=== PATIENT | male | born 1945 | race Caucasian/White ===

== ENCOUNTER 2019-09-02 06:19 | Inpatient (IN) | payer MEDICARE, OTHER ==
[~2019-09-02] VITALS: Ht 167.6 cm; Wt 94.6 kg
[2019-09-02] MEDS ORDERED: ALBUTEROL/IPRATROPIUM 2.5MG/0.5MG, 3 ML NPPB ONE (06:30)
[2019-09-02] MEDS ORDERED: MORPHINE SULFATE 4 MG/ML, 1ML ONE (06:30)
[2019-09-02] MEDS ORDERED: SODIUM CHLORIDE FLUSH 10ML SYR IVF ONE (06:30)
[2019-09-02] MEDS ORDERED: ONDANSETRON 2MG/ML, 2ML ONE (06:30)
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
--- NOTE | 2019-09-02 06:57 | NUR ---
REPORT TO DAVON TAM
[2019-09-02 07:10] LABS: BASOPHILS # (AUTO) 0.05 x10^3/uL (0-0.1); BASOPHILS % (AUTO) 1 % (0-1); EOSINOPHILS # (AUTO) 0.31 x10^3/uL (0-0.4); EOSINOPHILS % (AUTO) 3 % (1-7); LYMPHOCYTES # (AUTO) 4.26 x10^3/uL (1-3.4); LYMPHOCYTES % (AUTO) 38 % (22-44); MD NO; MEAN CORPUSCULAR HEMOGLOBIN 30.8 pg (27.5-34.5); MEAN CORPUSCULAR HGB CONC 33.1 g/dL (33.2-36.2); MEAN PLATELET VOLUME 10.8 fL (7.4-10.4); MONOCYTES # (AUTO) 0.96 x10^3/uL (0.2-0.8); MONOCYTES % (AUTO) 9 % (2-9); NEUTROPHILS # (AUTO) 5.67 x10^3/uL (1.8-6.8); NEUTROPHILS % (AUTO) 50 % (42-75); PLATELET COUNT 195 x10^3/uL (130-400); RED BLOOD COUNT 5.34 x10^6/uL (4.38-5.82); RED CELL DISTRIBUTION WIDTH 12.6 % (9.4-14.8)
[2019-09-02 07:14] LABS: ALBUMIN 3.7 g/dL (3.4-5.0); ANION GAP 8 mmol/L (5-15); CALCIUM 9.3 mg/dL (8.5-10.1); CHLORIDE 106 mmol/L (98-107); CREATININE 2.19 mg/dL (0.7-1.3)
--- NOTE | 2019-09-02 07:14 | NUR ---
REPORT FROM YONATAN TORREZ. PT SITTING UP IN BED ON SIMPLE MASK. "IT'S HARD TO BREATHE" PT SPEAKING IN FULL SENTENCES TO FAMILY. SATURATING WELL ON SIMPLE MASK. LAB AT BEDSIDE.
--- NOTE | 2019-09-02 08:10 | NUR ---
PT SITTING UP IN BED, TALKING WITH FAMILY. ATTEMPT TO SIT UP TO EDGE OF BED AND USE URINAL. NAD NOTED AT THIS TIME. AWAITING ADMIT ORDER.
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
[2019-09-02] MEDS ORDERED: SODIUM CHLORIDE FLUSH 10ML SYR IVF PRN (10:00)
[2019-09-02 10:46] VITALS: BP 113/67
[2019-09-02 10:55] VITALS: BP 117/73
[2019-09-02] MEDS ORDERED: DOCUSATE 100 MG CAPSULE PO PRN (12:00)
[2019-09-02] MEDS ORDERED: ONDANSETRON 2MG/ML, 2ML IVPush PRN (12:00)
[2019-09-02] MEDS ORDERED: ALBUTEROL HFA 90 MCG/SPRAY INH PRN (12:00)
[2019-09-02] MEDS ORDERED: ACETAMINOPHEN 500 MG TABLET PO PRN (12:00)
[2019-09-02] MEDS ORDERED: ACET325T14 PO (12:25)
[2019-09-02] MEDS ORDERED: CHOL10003 PO (12:25)
[2019-09-02] MEDS ORDERED: GABA-827 PO (12:25)
[2019-09-02] MEDS ORDERED: METO-99 PO (12:25)
[2019-09-02] MEDS ORDERED: METF500T17 PO (12:25)
[2019-09-02] MEDS ORDERED: INSU100V12 SC ×2 (12:25)
[2019-09-02] MEDS ORDERED: ROSU40TA PO (12:25)
[2019-09-02] MEDS ORDERED: APIX2.5T PO (12:25)
[2019-09-02] MEDS ORDERED: CLOP75TA52 PO (12:25)
[2019-09-02] MEDS ORDERED: ISOS20TA3 PO (12:25)
[2019-09-02] MEDS ORDERED: LORA10TA62 PO (12:25)
[2019-09-02] MEDS ORDERED: LOSA50TA14 PO (12:25)
[2019-09-02] MEDS ORDERED: SPIR25TA5 PO (12:25)
[2019-09-02] MEDS ORDERED: FENO54TA17 PO (12:25)
[2019-09-02 15:05] VITALS: BP 150/76
[2019-09-02] MEDS ORDERED: INSULIN ASPART SC SCH (16:30)
[2019-09-02] MEDS ORDERED: INSULN ASP PRT SC SCH (16:30)
[2019-09-02] MEDS: INSULIN LISPRO 100 UNITS/ML, PEN SQ-INSULIN SCH ×2 (16:35→21:18)
[2019-09-02 18:57] VITALS: BP 113/64
[2019-09-02] MEDS ORDERED: INSULIN GLARGINE 100 UNITS/ML, PEN SQ-INSULIN SCH (21:00)
[2019-09-02] MEDS: APIXABAN 5 MG TABLET PO SCH (21:16)
[2019-09-02] MEDS: ATORVASTATIN 80 MG TABLET PO SCH (21:16)
[2019-09-02] MEDS: ACETAMINOPHEN 325 MG TABLET PO PRN (21:16)
[2019-09-02] MEDS: GABAPENTIN 300 MG CAPSULE PO SCH (21:16)
[2019-09-02] MEDS: FENOFIBRATE 145 MG TABLET PO SCH (21:16)
[2019-09-02 23:27] VITALS: BP 137/95
[2019-09-02 23:47] VITALS: BP 135/86
[2019-09-02] MEDS ORDERED: DILTIAZEM 5 MG/ML, 5ML IVPush STA (23:54)
[2019-09-03] VITALS (10 sets, daily range): BP systolic 104–143; BP diastolic 58–85
[2019-09-03] MEDS ORDERED: DILTIAZEM 5 MG/ML, 5ML IVPush STA ×2 (00:38→01:30)
[2019-09-03] MEDS: METOPROLOL SUCCINATE 100 MG TAB.ER.24H PO SCH (01:49)
[2019-09-03 02:23] LABS: MEAN CORPUSCULAR HEMOGLOBIN 30.9 pg (27.5-34.5); MEAN CORPUSCULAR HGB CONC 33.4 g/dL (33.2-36.2); MEAN PLATELET VOLUME 10.8 fL (7.4-10.4); PLATELET COUNT 185 x10^3/uL (130-400); RED BLOOD COUNT 5.26 x10^6/uL (4.38-5.82); RED CELL DISTRIBUTION WIDTH 13.1 % (9.4-14.8)
[2019-09-03 02:30] LABS: ALBUMIN 3.4 g/dL (3.4-5.0); ANION GAP 10 mmol/L (5-15); CHLORIDE 106 mmol/L (98-107)
[2019-09-03 02:33] LABS: ALANINE AMINOTRANSFERASE 28 U/L (12-78); ALKALINE PHOSPHATASE 57 U/L (45-117); BILIRUBIN,TOTAL 0.9 mg/dL (0.2-1.0); CREATININE 2.05 mg/dL (0.7-1.3); TOTAL PROTEIN 7.8 g/dL (6.4-8.2)
[2019-09-03 02:45] LABS: BASOPHILS # (AUTO) 0.03 x10^3/uL (0-0.1); BASOPHILS % (AUTO) 0 % (0-1); EOSINOPHILS # (AUTO) 0.05 x10^3/uL (0-0.4); EOSINOPHILS % (AUTO) 0 % (1-7); LYMPHOCYTES # (AUTO) 2.59 x10^3/uL (1-3.4); LYMPHOCYTES % (AUTO) 12 % (22-44); MD SCAN; MONOCYTES # (AUTO) 2.06 x10^3/uL (0.2-0.8); MONOCYTES % (AUTO) 10 % (2-9); NEUTROPHILS # (AUTO) 16.63 x10^3/uL (1.8-6.8); NEUTROPHILS % (AUTO) 78 % (42-75)
[2019-09-03] MEDS ORDERED: METOPROLOL 1 MG/ML, 5ML IVPush STA (04:00)
[2019-09-03] MEDS: DILTIAZEM 125 MG in SODIUM CHLORIDE 0.9% 100 ML IV SCH ×2 (05:43→17:15)
[2019-09-03] MEDS ORDERED: INSULIN ASPART SC SCH (07:30)
[2019-09-03] MEDS ORDERED: INSULN ASP PRT SC SCH (07:30)
[2019-09-03] MEDS: CLOPIDOGREL 75 MG TABLET PO SCH (08:20)
[2019-09-03] MEDS: APIXABAN 5 MG TABLET PO SCH ×2 (08:20→20:58)
[2019-09-03] MEDS: LOSARTAN 50MG TABLET PO SCH (08:20)
[2019-09-03] MEDS: ISOSORBIDE MONONITRATE ER 60 MG TABLET PO SCH (08:20)
[2019-09-03] MEDS: SPIRONOLACTONE 25 MG TABLET PO SCH (08:20)
[2019-09-03] MEDS: INSULIN LISPRO 100 UNITS/ML, PEN SQ-INSULIN SCH ×4 (08:21→20:59)
[2019-09-03] MEDS ORDERED: FUROSEMIDE 20 MG/2 ML IV ONE ×2 (09:30)
[2019-09-03] MEDS: INSULIN GLARGINE 100 UNITS/ML, PEN SQ-INSULIN SCH ×2 (17:14→20:58)
[2019-09-03] MEDS: ATORVASTATIN 80 MG TABLET PO SCH (20:57)
[2019-09-03] MEDS: FENOFIBRATE 145 MG TABLET PO SCH (20:57)
[2019-09-03] MEDS: ACETAMINOPHEN 325 MG TABLET PO PRN (20:58)
[2019-09-03] MEDS: GABAPENTIN 300 MG CAPSULE PO SCH (20:58)
[2019-09-04] VITALS (8 sets, daily range): BP systolic 95–138; BP diastolic 60–76
[2019-09-04] MEDS: METOPROLOL SUCCINATE 100 MG TAB.ER.24H PO SCH (05:17)
[2019-09-04] MEDS: DILTIAZEM 125 MG in SODIUM CHLORIDE 0.9% 100 ML IV SCH (05:17)
[2019-09-04 05:40] LABS: MEAN CORPUSCULAR HEMOGLOBIN 30.9 pg (27.5-34.5); MEAN CORPUSCULAR HGB CONC 33.1 g/dL (33.2-36.2); MEAN PLATELET VOLUME 10.6 fL (7.4-10.4); PLATELET COUNT 160 x10^3/uL (130-400); RED BLOOD COUNT 4.81 x10^6/uL (4.38-5.82); RED CELL DISTRIBUTION WIDTH 13.5 % (9.4-14.8)
[2019-09-04 06:01] LABS: ANION GAP 12 mmol/L (5-15); CALCIUM 9.3 mg/dL (8.5-10.1); CHLORIDE 107 mmol/L (98-107)
[2019-09-04 06:04] LABS: ALANINE AMINOTRANSFERASE 25 U/L (12-78); ALKALINE PHOSPHATASE 50 U/L (45-117); CREATININE 2.82 mg/dL (0.7-1.3); TOTAL PROTEIN 7.8 g/dL (6.4-8.2)
[2019-09-04 06:08] LABS: BASOPHILS # (AUTO) 0.02 x10^3/uL (0-0.1); BASOPHILS % (AUTO) 0 % (0-1); EOSINOPHILS # (AUTO) 0.04 x10^3/uL (0-0.4); EOSINOPHILS % (AUTO) 0 % (1-7); LYMPHOCYTES # (AUTO) 1.92 x10^3/uL (1-3.4); LYMPHOCYTES % (AUTO) 17 % (22-44); MD SCAN; MONOCYTES # (AUTO) 1.75 x10^3/uL (0.2-0.8); MONOCYTES % (AUTO) 15 % (2-9); NEUTROPHILS # (AUTO) 7.86 x10^3/uL (1.8-6.8); NEUTROPHILS % (AUTO) 68 % (42-75)
[2019-09-04] MEDS: CLOPIDOGREL 75 MG TABLET PO SCH (08:47)
[2019-09-04] MEDS: INSULIN LISPRO 100 UNITS/ML, PEN SQ-INSULIN SCH ×5 (08:47→20:16)
[2019-09-04] MEDS: INSULIN GLARGINE 100 UNITS/ML, PEN SQ-INSULIN SCH ×2 (08:47→20:15)
[2019-09-04] MEDS: SPIRONOLACTONE 25 MG TABLET PO SCH (08:47)
[2019-09-04] MEDS: APIXABAN 5 MG TABLET PO SCH ×2 (08:48→20:15)
[2019-09-04] MEDS: LOSARTAN 50MG TABLET PO SCH (08:48)
[2019-09-04] MEDS: ISOSORBIDE MONONITRATE ER 60 MG TABLET PO SCH (08:48)
[2019-09-04] MEDS ORDERED: PHARMACY MAY ADJ FOR RENAL FX MC PRN (09:30)
[2019-09-04] MEDS ORDERED: LACTATED RINGERS 1,000 ML IV SCH (13:00)
[2019-09-04] MEDS: GUAIFENESIN 200 MG TABLET PO SCH ×3 (13:22→20:14)
[2019-09-04 14:31] LABS: ACETONE, SERUM Trace (Negative)
[2019-09-04] MEDS: DILTIAZEM 30 MG TABLET PO SCH ×2 (16:43→20:15)
[2019-09-04 20:12] LABS: CLOSTRIDIUM DIFFICILE ANTIGEN NEGATIVE; CLOSTRIDIUM DIFFICILE TOXIN NEGATIVE (Negative)
[2019-09-04] MEDS: GABAPENTIN 300 MG CAPSULE PO SCH (20:14)
[2019-09-04] MEDS: FENOFIBRATE 145 MG TABLET PO SCH (20:14)
[2019-09-04] MEDS: ATORVASTATIN 80 MG TABLET PO SCH (20:15)
[2019-09-05 00:18] VITALS: BP 107/59
[2019-09-05 05:33] VITALS: BP 116/72
[2019-09-05] MEDS: GUAIFENESIN 200 MG TABLET PO SCH ×4 (05:34→20:51)
[2019-09-05] MEDS: METOPROLOL SUCCINATE 100 MG TAB.ER.24H PO SCH (05:34)
[2019-09-05 05:53] LABS: BASOPHILS # (AUTO) 0.03 x10^3/uL (0-0.1); BASOPHILS % (AUTO) 0 % (0-1); EOSINOPHILS # (AUTO) 0.18 x10^3/uL (0-0.4); EOSINOPHILS % (AUTO) 2 % (1-7); LYMPHOCYTES # (AUTO) 2.12 x10^3/uL (1-3.4); LYMPHOCYTES % (AUTO) 25 % (22-44); MD NO; MEAN CORPUSCULAR HGB CONC 33.3 g/dL (33.2-36.2); MEAN PLATELET VOLUME 10.6 fL (7.4-10.4); MONOCYTES # (AUTO) 1.13 x10^3/uL (0.2-0.8); MONOCYTES % (AUTO) 13 % (2-9); NEUTROPHILS # (AUTO) 5.12 x10^3/uL (1.8-6.8); NEUTROPHILS % (AUTO) 60 % (42-75); PLATELET COUNT 180 x10^3/uL (130-400); RED BLOOD COUNT 4.52 x10^6/uL (4.38-5.82); RED CELL DISTRIBUTION WIDTH 13.2 % (9.4-14.8)
[2019-09-05 06:04] LABS: CALCIUM 8.2 mg/dL (8.5-10.1); CREATININE 2.36 mg/dL (0.7-1.3)
[2019-09-05 06:57] VITALS: BP 135/81
[2019-09-05] MEDS: INSULIN GLARGINE 100 UNITS/ML, PEN SQ-INSULIN SCH ×2 (07:55→20:53)
[2019-09-05] MEDS: INSULIN LISPRO 100 UNITS/ML, PEN SQ-INSULIN SCH ×4 (07:55→20:52)
[2019-09-05] MEDS: APIXABAN 5 MG TABLET PO SCH ×2 (07:56→20:51)
[2019-09-05] MEDS: DILTIAZEM 30 MG TABLET PO SCH ×3 (07:56→20:52)
[2019-09-05] MEDS: CLOPIDOGREL 75 MG TABLET PO SCH (07:56)
[2019-09-05] MEDS: ISOSORBIDE MONONITRATE ER 60 MG TABLET PO SCH (07:56)
[2019-09-05] MEDS ORDERED: LOPERAMIDE 2 MG CAPSULE PO PRN (09:00)
[2019-09-05 09:10] LABS: ANION GAP 11 mmol/L (5-15); CHLORIDE 108 mmol/L (98-107)
[2019-09-05] MEDS: ACETAMINOPHEN 325 MG TABLET PO PRN (09:26)
[2019-09-05] MEDS: LACTOBACILLUS CHEW TABLET PO SCH ×3 (11:08→20:51)
[2019-09-05 12:27] VITALS: BP 135/76
[2019-09-05] MEDS ORDERED: LACTATED RINGERS 1,000 ML IV SCH (14:00)
[2019-09-05 16:21] VITALS: BP 123/68
[2019-09-05 18:58] VITALS: BP 119/70
[2019-09-05] MEDS: GABAPENTIN 300 MG CAPSULE PO SCH (20:51)
[2019-09-05] MEDS: FENOFIBRATE 145 MG TABLET PO SCH (20:51)
[2019-09-05] MEDS: ATORVASTATIN 80 MG TABLET PO SCH (20:51)
[2019-09-06 00:42] VITALS: BP 117/73
[2019-09-06 05:51] VITALS: BP 125/59
[2019-09-06] MEDS: GUAIFENESIN 200 MG TABLET PO SCH ×2 (05:53→11:12)
[2019-09-06] MEDS: LACTOBACILLUS CHEW TABLET PO SCH ×4 (05:53→20:17)
[2019-09-06] MEDS: METOPROLOL SUCCINATE 100 MG TAB.ER.24H PO SCH (05:53)
[2019-09-06] MEDS: CLOPIDOGREL 75 MG TABLET PO SCH (08:23)
[2019-09-06] MEDS: ISOSORBIDE MONONITRATE ER 60 MG TABLET PO SCH (08:23)
[2019-09-06] MEDS: DILTIAZEM 30 MG TABLET PO SCH ×3 (08:23→20:17)
[2019-09-06] MEDS: APIXABAN 5 MG TABLET PO SCH ×2 (08:23→20:17)
[2019-09-06] MEDS: INSULIN LISPRO 100 UNITS/ML, PEN SQ-INSULIN SCH ×4 (08:24→20:18)
[2019-09-06] MEDS: INSULIN GLARGINE 100 UNITS/ML, PEN SQ-INSULIN SCH ×2 (08:25→20:18)
[2019-09-06 08:35] VITALS: BP 126/84
[2019-09-06 11:24] LABS: CHLORIDE 108 mmol/L (98-107)
[2019-09-06 11:35] LABS: ANION GAP 13 mmol/L (5-15); CALCIUM 8.6 mg/dL (8.5-10.1); CREATININE 1.77 mg/dL (0.7-1.3)
[2019-09-06 13:50] VITALS: BP 119/71
[2019-09-06 18:35] VITALS: BP 134/66
[2019-09-06] MEDS: GABAPENTIN 300 MG CAPSULE PO SCH (20:17)
[2019-09-06] MEDS: ATORVASTATIN 80 MG TABLET PO SCH (20:17)
[2019-09-06] MEDS: FENOFIBRATE 145 MG TABLET PO SCH (20:17)
[2019-09-06] MEDS: GUAIFENESIN 200 MG TABLET PO PRN (20:20)
[2019-09-07 00:41] VITALS: BP 144/83
[2019-09-07] MEDS ORDERED: PROMETHAZINE 25 MG/ML, 1ML IV ONE ×2 (05:00→05:30)
[2019-09-07 05:19] VITALS: BP 133/74
[2019-09-07] MEDS: LACTOBACILLUS CHEW TABLET PO SCH ×4 (05:20→20:43)
[2019-09-07] MEDS: METOPROLOL SUCCINATE 100 MG TAB.ER.24H PO SCH (05:20)
[2019-09-07 06:11] VITALS: BP 122/76
[2019-09-07 06:25] LABS: ANION GAP 8 mmol/L (5-15); CHLORIDE 107 mmol/L (98-107); CREATININE 1.63 mg/dL (0.7-1.3)
[2019-09-07] MEDS: CLOPIDOGREL 75 MG TABLET PO SCH (07:53)
[2019-09-07] MEDS: DILTIAZEM 30 MG TABLET PO SCH ×3 (07:53→20:44)
[2019-09-07] MEDS: ISOSORBIDE MONONITRATE ER 60 MG TABLET PO SCH (07:53)
[2019-09-07] MEDS: APIXABAN 5 MG TABLET PO SCH ×2 (07:53→20:44)
[2019-09-07] MEDS: INSULIN GLARGINE 100 UNITS/ML, PEN SQ-INSULIN SCH ×2 (07:54→20:43)
[2019-09-07] MEDS: INSULIN LISPRO 100 UNITS/ML, PEN SQ-INSULIN SCH ×5 (07:54→20:42)
[2019-09-07 13:05] VITALS: BP 138/78
[2019-09-07 19:04] VITALS: BP 101/45
[2019-09-07] MEDS: FENOFIBRATE 145 MG TABLET PO SCH (20:43)
[2019-09-07] MEDS: GABAPENTIN 300 MG CAPSULE PO SCH (20:43)
[2019-09-07] MEDS: ATORVASTATIN 80 MG TABLET PO SCH (20:44)
[2019-09-08 00:21] VITALS: BP 135/83
[2019-09-08 04:02] LABS: MEAN CORPUSCULAR HEMOGLOBIN 30.9 pg (27.5-34.5); MEAN CORPUSCULAR HGB CONC 33.1 g/dL (33.2-36.2); MEAN PLATELET VOLUME 9.6 fL (7.4-10.4); PLATELET COUNT 217 x10^3/uL (130-400); RED BLOOD COUNT 4.77 x10^6/uL (4.38-5.82); RED CELL DISTRIBUTION WIDTH 13.1 % (9.4-14.8)
[2019-09-08 04:10] LABS: ANION GAP 8 mmol/L (5-15); CALCIUM 8.8 mg/dL (8.5-10.1); CHLORIDE 110 mmol/L (98-107); CREATININE 1.46 mg/dL (0.7-1.3)
[2019-09-08 04:53] LABS: MD YES
[2019-09-08 05:01] LABS: BAND#(MANUAL) 0.15 x10^3/uL; BANDS%(MANUAL) 1 % (0-7); EOS#(MANUAL) 0.31 x10^3/uL (0.0-0.4); EOS% (MANUAL) 2 % (1-7); LYMPH#(MANUAL) 3.21 x10^3/uL (1-3.4); LYMPHS% (MANUAL) 21 % (22-44); MONOS#(MANUAL) 1.22 x10^3/uL (0.3-2.7); MONOS% (MANUAL) 8 % (2-9); POLYCHROMASIA 1+; REACTIVE LYMPHS # (MANUAL) 0.31 x10^3/uL (0-0); REACTIVE LYMPHS % (MANUAL) 2 % (0-0); SEGS% (MANUAL) 66 % (42-75)
[2019-09-08 05:02] LABS: <PLATELET ESTIMATE> ADEQUATE; <PLT MORPHOLOGY> NORMAL PLT MORPH
[2019-09-08 05:09] VITALS: BP 137/99
[2019-09-08] MEDS: GUAIFENESIN 200 MG TABLET PO PRN (05:11)
[2019-09-08] MEDS: METOPROLOL SUCCINATE 100 MG TAB.ER.24H PO SCH (05:11)
[2019-09-08] MEDS: LACTOBACILLUS CHEW TABLET PO SCH ×4 (05:12→21:02)
[2019-09-08] MEDS: INSULIN LISPRO 100 UNITS/ML, PEN SQ-INSULIN SCH ×4 (08:20→21:04)
[2019-09-08] MEDS: APIXABAN 5 MG TABLET PO SCH ×2 (08:21→21:02)
[2019-09-08] MEDS: ISOSORBIDE MONONITRATE ER 60 MG TABLET PO SCH (08:21)
[2019-09-08] MEDS: DILTIAZEM 30 MG TABLET PO SCH ×3 (08:21→21:02)
[2019-09-08] MEDS: CLOPIDOGREL 75 MG TABLET PO SCH (08:21)
[2019-09-08] MEDS: INSULIN GLARGINE 100 UNITS/ML, PEN SQ-INSULIN SCH ×2 (08:21→21:03)
[2019-09-08 08:24] VITALS: BP 130/79
[2019-09-08 14:36] VITALS: BP 117/60
[2019-09-08 18:39] VITALS: BP 135/69
[2019-09-08] MEDS: ATORVASTATIN 80 MG TABLET PO SCH (21:02)
[2019-09-08] MEDS: FENOFIBRATE 145 MG TABLET PO SCH (21:02)
[2019-09-08] MEDS: GABAPENTIN 300 MG CAPSULE PO SCH (21:02)
[2019-09-08] MEDS: ACETAMINOPHEN 325 MG TABLET PO PRN (21:27)
[2019-09-09 01:53] VITALS: BP 129/64
[2019-09-09 04:24] LABS: BASOPHILS # (AUTO) 0.04 x10^3/uL (0-0.1); BASOPHILS % (AUTO) 0 % (0-1); EOSINOPHILS # (AUTO) 0.22 x10^3/uL (0-0.4); EOSINOPHILS % (AUTO) 2 % (1-7); LYMPHOCYTES # (AUTO) 3.11 x10^3/uL (1-3.4); LYMPHOCYTES % (AUTO) 22 % (22-44); MD NO; MEAN CORPUSCULAR HEMOGLOBIN 30.6 pg (27.5-34.5); MEAN CORPUSCULAR HGB CONC 33.2 g/dL (33.2-36.2); MEAN PLATELET VOLUME 10.1 fL (7.4-10.4); MONOCYTES # (AUTO) 1.29 x10^3/uL (0.2-0.8); MONOCYTES % (AUTO) 9 % (2-9); NEUTROPHILS % (AUTO) 67 % (42-75); PLATELET COUNT 201 x10^3/uL (130-400); RED BLOOD COUNT 4.66 x10^6/uL (4.38-5.82); RED CELL DISTRIBUTION WIDTH 13.1 % (9.4-14.8)
[2019-09-09 04:31] LABS: CHLORIDE 107 mmol/L (98-107)
[2019-09-09 04:35] LABS: ANION GAP 9 mmol/L (5-15); CALCIUM 7.8 mg/dL (8.5-10.1); CREATININE 1.62 mg/dL (0.7-1.3)
[2019-09-09 05:58] VITALS: BP 141/84
[2019-09-09] MEDS: LACTOBACILLUS CHEW TABLET PO SCH ×2 (05:59→10:54)
[2019-09-09] MEDS: METOPROLOL SUCCINATE 100 MG TAB.ER.24H PO SCH (05:59)
[2019-09-09 08:17] VITALS: BP 129/73
[2019-09-09] MEDS: APIXABAN 5 MG TABLET PO SCH (08:25)
[2019-09-09] MEDS: DILTIAZEM 30 MG TABLET PO SCH (08:26)
[2019-09-09] MEDS: ISOSORBIDE MONONITRATE ER 60 MG TABLET PO SCH (08:26)
[2019-09-09] MEDS: CLOPIDOGREL 75 MG TABLET PO SCH (08:26)
[2019-09-09] MEDS: INSULIN LISPRO 100 UNITS/ML, PEN SQ-INSULIN SCH ×2 (08:33→10:54)
[2019-09-09] MEDS: INSULIN GLARGINE 100 UNITS/ML, PEN SQ-INSULIN SCH (08:33)
[2019-09-09] MEDS ORDERED: METO-95 PO (11:17)
[2019-09-09] MEDS ORDERED: DILT30TA27 PO (11:17)
[2019-09-09 13:02] VITALS: BP 158/90
== END 2019-09-09 15:53 | DRG 917 ==
LOC: ED 07:30 → EDIP 08:48 → 4WST 10:17
PROVIDERS: ADMIT Internal Medicine; ATTEND Family Medicine
DX: T58.91XA Toxic effect of carbon monoxide from unspecified source, accidental (unintentional), initial encounter (principal); J96.01 Acute respiratory failure with hypoxia; I50.43 Acute on chronic combined systolic (congestive) and diastolic (congestive) heart failure; N17.0 Acute kidney failure with tubular necrosis; I47.2 Ventricular tachycardia; E87.2 Acidosis; I13.0 Hypertensive heart and chronic kidney disease with heart failure and stage 1 through stage 4 chronic kidney disease, or unspecified chronic kidney disease; D68.69 Other thrombophilia; I48.20 Chronic atrial fibrillation, unspecified; E11.65 Type 2 diabetes mellitus with hyperglycemia; E11.21 Type 2 diabetes mellitus with diabetic nephropathy; D72.829 Elevated white blood cell count, unspecified; F03.90 Unspecified dementia, unspecified severity, without behavioral disturbance, psychotic disturbance, mood disturbance, and anxiety; I25.10 Atherosclerotic heart disease of native coronary artery without angina pectoris; I25.2 Old myocardial infarction; Z66 Do not resuscitate; N18.9 Chronic kidney disease, unspecified; E11.22 Type 2 diabetes mellitus with diabetic chronic kidney disease; I48.0 Paroxysmal atrial fibrillation; E66.9 Obesity, unspecified; R19.7 Diarrhea, unspecified; I08.1 Rheumatic disorders of both mitral and tricuspid valves; Z68.33 Body mass index [BMI] 33.0-33.9, adult; Z88.8 Allergy status to other drugs, medicaments and biological substances; Z95.810 Presence of automatic (implantable) cardiac defibrillator; Z79.4 Long term (current) use of insulin; Z79.01 Long term (current) use of anticoagulants; X00.0XXA Exposure to flames in uncontrolled fire in building or structure, initial encounter; Y92.039 Unspecified place in apartment as the place of occurrence of the external cause; Z20.828 Contact with and (suspected) exposure to other viral communicable diseases
CPT/HCPCS: 36415; 36600; 99285; C8929; 71045; 80048; 80053; 82010; 82040; 82375; 82803; 82962; 83036; 83605; 83735; 83880; 84443; 85025; 87324; 87635; 93005; G0378; J2405; J2550; Q9957; J1815; J1940; J7120